=== PATIENT | female | born 1960 | race Hispanic/Latino ===

== ENCOUNTER 2018-02-20 09:00 | Day surgery (SDC) | payer OTHER ==
[~2018-02-20 09:00] MED LIST: ANCEF/STERILE WATER 2 GM/20 ML 2 GM/20 ML SYRINGE IV NR; NACL 0.9% 1000 ML 1,000 ML IV SCH
[2018-02-20] MEDS ORDERED: NACL 0.9% 500 ML 500 ML IV SCH (10:00)
[2018-02-20 10:08] LABS: Basophils # (Auto) 0.1 K/mm3 (0.0-0.1); Basophils % (Auto) 0.9 % (0.0-1.8); Eosinophils # (Auto) 0.1 K/mm3 (0.0-0.4); Eosinophils % (Auto) 1.6 % (0.0-4.3); Hematocrit 40.4 % (30.3-42.9); Hemoglobin 13.4 gm/dl (10.1-14.3); Lymphocytes # (Auto) 1.6 K/mm3 (1.2-5.4); Lymphocytes % (Auto) 28.2 % (13.4-35.0); Mean Corpuscular HGB Conc 33 % (30-34); Mean Corpuscular Hemoglobin 30 pg (28-32); Mean Corpuscular Volume 90 fl (79-97); Monocytes # (Auto) 0.4 K/mm3 (0.0-0.8); Platelet Count 262 K/mm3 (140-440); Red Blood Count 4.49 M/mm3 (3.65-5.03); Red Cell Distribution Width 13.8 % (13.2-15.2)
[2018-02-20 10:19] LABS: INR 0.87 (0.87-1.13); Partial Thromboplastin Time 25.9 Sec. (24.2-36.6)
[2018-02-20 10:39] LABS: BUN/Creatinine Ratio 20; Blood Urea Nitrogen 14 mg/dL (7-17); Calcium 10.8 mg/dL (8.4-10.2); Hemolysis Index 3
[2018-02-20] MEDS ORDERED: HEPARIN/NS 5000 UNIT/500ML(CATH LAB) 1,000 ML IR ONE (12:48)
[2018-02-20] MEDS ORDERED: ANCEF/STERILE WATER 2 GM/20 ML 0 GM/0 ML SYRINGE IV ONE (12:51)
[2018-02-20] MEDS ORDERED: NACL 0.9% 500 ML 500 ML ONE (13:06)
[2018-02-20] MEDS: SUBLIMAZE ONE ×3 (13:31→13:48)
[2018-02-20] MEDS: VERSED ONE ×2 (13:31→13:42)
[2018-02-20] MEDS: XYLOCAINE 2% INFILTRATI ONE ×2 (13:34→13:37)
[2018-02-20] MEDS ORDERED: TORADOL ONE (13:47)
[2018-02-20] MEDS ORDERED: VERSED ONE (13:49)
[2018-02-20] MEDS ORDERED: SUBLIMAZE ONE (13:49)
--- NOTE | 2018-02-20 14:23 | Short Stay Summary ---
Short Stay Documentation Date of service: 02/20/18 - History Principal diagnosis: venous hypertension/compression of vein Past Medical History: other ([id number] insufficiency) Past Surgical History: Other (ble EVLT) Social history: lives with family - Allergies and Medications Current Medications: Allergies amoxicillin [From Augmentin] Allergy (Verified 02/20/18 09:35) FOAM FORMS IN THE MOUTH clavulanic acid [From Augmentin] Allergy (Verified 02/20/18 09:35) FOAM FORMS IN THE MOUTH ibuprofen [From Motrin] Allergy (Verified 02/20/18 09:35) UPSET STOMACH AND BLEEDING Home Medications Medication Instructions Recorded Confirmed Last Taken Type Bupropion HCl [Wellbutrin Sr] 150 mg PO DAILY 02/20/18 02/20/18 02/19/18 History Omeprazole 40 mg PO DAILY 02/20/18 02/20/18 02/20/18 History Sucralfate 1 gm PO QID 02/20/18 02/20/18 02/20/18 06:00 History Active Medications Cefazolin Sodium (Ancef/Sterile Water 2 Gm/20 Ml) 2 gm in 20 mls @ 80 mls/hr IV PREOP NR; Protocol Stop: 02/20/18 23:59 Sodium Chloride (Nacl 0.9% 500 Ml) 500 mls @ 50 mls/hr IV DIRECT SKY - Physical exam General appearance: no acute distress Integumentary: no rash HEENT: Atraumatic Lungs: Normal air movement Breasts: deferred Gastrointestinal: normal Female Genitourinary: deferred Extremities: no ischemia Neurological: Normal gait, Normal speech - Brief post op/procedure progress note Date of procedure: 02/20/18 Pre-op diagnosis: venous hypertension/compression of vein Post-op diagnosis: same Procedure: BLE venogram and stent placement Anesthesia: local Surgeon: DIDIER SERVIN Estimated blood loss: minimal Pathology: none Condition: stable - Disposition Condition at discharge: Good Disposition: [id number] TO HOME OR SELFCARE Short Stay Discharge Plan Activity: advance as tolerated Weight Bearing Status: Weight Bear as Tolerated Diet: regular Wound: keep clean and dry, per your surgeon's advice Follow up with: GABRIELA VALDIVIA MD [Primary Care Provider] - 7 Days
--- NOTE | 2018-02-20 14:29 | Operative Report ---
Operative Report Operative Report: Exam: Bilateral lower extremity venogram, intravascular ultrasound, venogram was stent placement Clinical indication: Venous hypertension with extrinsic compression of common iliac veins Date: 02/20/2018 Procedure: Following an expiration of the risks, benefits and alternatives; written informed consent was obtained. The patient was brought to the injury graphic suite and placed in supine position on the examination table. Initial ultrasound evaluation of the legs demonstrated patent although enlarged femoral veins bilaterally. The patient's legs were prepped and draped in the usual sterile fashion. 1% lidocaine was used for anesthesia. Under ultrasound guidance, the proximal right femoral vein was cannulated with a 7 cm 18-gauge needle. A 0.035 guidewire was advanced centrally under fluoroscopy. The needle was removed and a 5 Burmese sheath placed. Access to the left proximal femoral vein was obtained in a similar fashion and a second 5 Burmese sheath placed. Contrast was injected through the sheath bilaterally. This demonstrates 70-80% stenosis involving the left common iliac vein and long segment stenosis of the 60% involving the right external iliac vein and right common iliac vein. A decision was made to investigate further with intravascular ultrasound. Intravascular ultrasound was performed from the right sheath from the IVC, right common iliac vein, right external iliac vein and right common femoral vein. Intravascular ultrasound was then performed through the left sheath from the IVC, left common iliac vein, left external iliac vein and left common femoral vein. This demonstrates 80-90% stenosis involving the left common iliac vein throughout its course. A separate 50-60% stenosis is present involving the left external iliac vein with prestenotic dilatation of the distal left external iliac vein and femoral vein. Intravascular ultrasound also demonstrates 70% stenosis of the right common iliac vein and right external iliac vein with prestenotic dilatation of the distal right external iliac vein and right common femoral vein. 14 X 90 mm wall stents were advanced for both sheath and deployed increasing fashion with the end of the stents in the distal IVC in the proximal aspect of the stents in the proximal external iliac veins bilaterally. The stents were extended more distally to deployed and cover it additional lesions in the external iliac veins with a 14 x 60 mm Wallstent on the left and a 14 x 40 mm Wallstent on the right. The stents were seated using 14 mm balloons insufflated to nominal atmospheres of multiple locations. Post stent deployment imaging demonstrated brisk flow throughout the bilateral external iliac veins and bilateral common iliac veins. The guidewires and she's were removed and hemostasis achieved using manual compression. A sterile compression dressing was placed on both legs bilaterally. The patient tolerated the procedure well. There were no immediate post procedure complications. Conscious sedation was performed under the guidance of radiologic nursing. Continuous cardiopulmonary monitoring was utilized. Impression: 1) Bilateral lower extremity venogram demonstrating significant extrinsic compression of bilateral common iliac veins and external iliac veins. 2) Intravascular ultrasound performed in the IVC, bilateral common iliac veins , bilateral external iliac veins and bilateral common femoral veins. 3) Treatment of the described lesions using stent placement and venoplasty with residual less than 10% stenosis.
[2018-02-20] MEDS ORDERED: PERCOCET 5/325 PO ONE (14:38)
[2018-02-20 15:58] VITALS: BP 121/75
== END 2018-02-20 16:25 | disposition home or self-care (01) ==
LOC: CATHLABREC 09:00
PROVIDERS: ATTEND Radiology Diagnostic Radiology
DX: I87.1 Compression of vein (principal); I87.393 Chronic venous hypertension (idiopathic) with other complications of bilateral lower extremity; K21.9 Gastro-esophageal reflux disease without esophagitis; Z79.01 Long term (current) use of anticoagulants; Z88.6 Allergy status to analgesic agent; Z88.1 Allergy status to other antibiotic agents; Z87.891 Personal history of nicotine dependence
CPT/HCPCS: 36415; 37238; 37239; 37252; 37253; 76937; 80048; 85025; 85610; 85730; 99156; 99157; C1725; C1753; C1769; C1876; C1894; J1644; J1885; J2250; J3010; J7040; J0690; Q9967